=== PATIENT | female | born 1950 | race Caucasian/White ===

== ENCOUNTER 2016-10-22 22:06 | Observation (INO) | payer MEDICAID ==
[2016-10-22] MEDS ORDERED: Sodium Chloride 0.9% 1,000 ML IV STA (22:50)
[2016-10-22] MEDS ORDERED: Dexamethasone 4 mg/1 ml IV ONE (22:51)
--- NOTE | 2016-10-22 22:54 | ED PDOC ---
HPI: CCC, URI, Sore Throat Time Seen by Provider: 10/22/16 22:52 Chief Complaint (Nursing): ENT Problem Chief Complaint (Provider): sore throat History Per: Patient (66 y/o female here for evaluation of sore throat x 2 days associated with mild cough/nasal congestion. States she is unable to eat/drink since. Denies any vomiting/diarrhea. Notes chills. ) Past Medical History Reviewed: Historical Data, Nursing Documentation, Vital Signs Vital Signs: Last Vital Signs Temp 98.7 F 10/22/16 22:18 Pulse 82 10/22/16 22:18 Resp 18 10/22/16 22:18 BP 120/70 10/22/16 22:18 Pulse Ox 99 10/22/16 22:53 - Medical History PMH: Hyperthyroidism - Surgical History Surgical History: Appendectomy - Family History Family History: States: No Known Family Hx - Allergies Allergies/Adverse Reactions: Allergies Allergy/AdvReac Type Severity Reaction Status Date / Time No Known Allergies Allergy Verified 10/22/16 22:18 Review of Systems ROS Statement: Except As Marked, All Systems Reviewed And Found Negative ENT: Positive for: Throat Pain Physical Exam - Reviewed Nursing Documentation Reviewed: Yes Vital Signs Reviewed: Yes - Physical Exam Appears: Positive for: Well, Non-toxic, No Acute Distress Head Exam: Positive for: ATRAUMATIC, NORMAL INSPECTION, NORMOCEPHALIC Skin: Positive for: Normal Color, Warm, DRY Eye Exam: Positive for: EOMI, Normal appearance, PERRL ENT: Positive for: Pharynx Is (right tonsillar erythema noted). Negative for: Normal ENT Inspection Neck: Positive for: Normal, Painless ROM Cardiovascular/Chest: Positive for: Regular Rate, Rhythm Respiratory: Positive for: CNT, Normal Breath Sounds Gastrointestinal/Abdominal: Positive for: Normal Exam, Bowel Sounds, Soft Back: Positive for: Normal Inspection Extremity: Positive for: Normal ROM Neurologic/Psych: Positive for: Alert, Oriented - Laboratory Results Result Diagrams: 10/22/16 23:13 10/22/16 23:13 - ECG O2 Sat by Pulse Oximetry: 99 - Progress ED Course And Treament: NS 1 liter 500ml per hour Morphine 2 mg iv x 1 dose zofran 4 mg iv x 1 dose decadron 10 mg iv x 1 dose RAPID STREP NEG INFLUENZA A/B NEG CT NECK SOFT TISSUE WITH CONTRAST: PENDING Disposition - Clinical Impression Clinical Impression: Sore throat - Patient ED Disposition Is Patient to be Admitted: Transfer of Care - Disposition Disposition: Transfer of Care Disposition Time: 00:00 Condition: FAIR Patient Signed Over To: Melissa Andrade Handoff Comments: PENDING CT NECK RESULTS
[2016-10-22 23:23] LABS: BASO # 0.1 K/uL (0.0-0.2); BASO % 0.7 % (0.0-2.0); EOS # 0.1 K/uL (0.0-0.7); EOS % 0.7 % (0.0-4.0); HEMATOCRIT 40.7 % (34.0-47.0); LYMPH # 1.7 K/uL (1.0-4.3); LYMPH % 17.9 % (20.0-40.0); MEAN CELL VOLUME 95.1 fl (81.0-99.0); MEAN CORPUSCULAR HEMOGLOBIN 31.8 pg (27.0-31.0); MEAN CORPUSCULAR HGB CONC 33.4 g/dL (33.0-37.0); MEAN PLATELET VOLUME 8.3 fl (7.2-11.7); MONO # 0.9 K/uL (0.0-0.8); NEUT # 6.6 K/uL (1.8-7.0); NEUT % 70.7 % (50.0-75.0); NRBC % 0.1 % (0.0-0.0); RED CELL DISTRIBUTION WIDTH 13.8 % (11.5-14.5); WHITE BLOOD COUNT 9.4 K/uL (4.8-10.8)
[2016-10-22 23:33] LABS: ALB/GLOB RATIO 1.2 (1.0-2.1); ALKALINE PHOSPHATASE 53 U/L (38-126); ALT/SGPT 32 U/L (9-52); AST/SGOT 29 U/L (14-36); BILIRUBIN,TOTAL 0.5 mg/dl (0.2-1.3); BLOOD UREA NITROGEN 18 mg/dl (7-17); CALCIUM 9.1 mg/dL (8.4-10.2); CARBON DIOXIDE 23 mmol/L (22-30); CHLORIDE 109 mmol/L (98-107); GFR AFRICAN-AMERICAN > 60; GLUCOSE,RANDOM 103 mg/dL (65-105); POTASSIUM 3.9 MMOL/L (3.6-5.0); SODIUM 141 mmol/l (132-148)
[2016-10-23] MEDS ORDERED: Iohexol 300 50 ML ONE (00:38)
--- NOTE | 2016-10-23 01:54 | CT ---
EXAM: CT Neck With Intravenous Contrast CLINICAL HISTORY: 66 years old, female; Pain; Painful swallowing and throat pain; Additional info: R/O retropharyngeal abscess TECHNIQUE: Axial computed tomography images of the neck with intravenous contrast. This CT exam was performed using one or more of the following dose reduction techniques: automated exposure control, adjustment of the mA and/or kV according to patient size, and/or use of iterative reconstruction technique. Coronal and sagittal reformatted images were created and reviewed. CONTRAST: 80 mL of [id number] administered intravenously. EXAM DATE/TIME: 10/22/2016 11:49 PM COMPARISON: No relevant prior studies available. FINDINGS: There are multiple low attenuation lesions in the thyroid, more prominent in the right lobe. The largest hypoattenuating area measures approximately 10 x 4 mm. Followup ultrasound is recommended. There is edema and heterogeneity along the inferior aspect of the lingual tonsil supportive of infectious/inflammatory process. Just anterior to the vallecula is a small round 7 x 9 x 12 mm fluid collection with enhancing rim supportive of a small abscess. The abscess nearly abuts the superior aspect of the hyoid bone and is located approximately 7 mm anterior to the mid vallecula. The epiglottis is edematous measuring 6 mm in diameter however the airway remains widely patent. There is no prevertebral soft tissue swelling. Mild degenerative changes in the osseous structures. IMPRESSION: Heterogeneity and edema at the base of the lingual tonsil consistent with inflammatory/infectious process with small abscess formation as described above. The epiglottis also appears involved being slightly edematous however the airway remains patent.
--- NOTE | 2016-10-23 02:21 | ED PDOC ---
- Laboratory Results Result Diagrams: 10/22/16 23:13 10/22/16 23:13 - ECG O2 Sat by Pulse Oximetry: 99 - Progress ED Course And Treament: case endorsed to feature writer EXAM: CT Neck With Intravenous Contrast CLINICAL HISTORY: 66 years old, female; Pain; Painful swallowing and throat pain; Additional info : R/O retropharyngeal abscess TECHNIQUE: Axial computed tomography images of the neck with intravenous contrast. This CT exam was performed using one or more of the following dose reduction techniques: automated exposure control, adjustment of the mA and/or kV according to patient size, and/or use of iterative reconstruction technique. Coronal and sagittal reformatted images were created and reviewed. CONTRAST: 80 mL of [id number] administered intravenously. EXAM DATE/TIME: 10/22/2016 11:49 PM COMPARISON: No relevant prior studies available. FINDINGS: There are multiple low attenuation lesions in the thyroid, more prominent in the right lobe. The largest hypoattenuating area measures approximately 10 x 4 mm. Followup ultrasound is recommended. There is edema and heterogeneity along the inferior aspect of the lingual tonsil supportive of infectious/inflammatory process. Just anterior to the vallecula is a small round 7 x 9 x 12 mm fluid collection with enhancing rim supportive of a small abscess. The abscess nearly abuts the superior aspect of the hyoid bone and is located approximately 7 mm anterior to the mid vallecula. The epiglottis is edematous measuring 6 mm in diameter however the airway remains widely patent. There is no prevertebral soft tissue swelling. Mild degenerative changes in the osseous structures. IMPRESSION: Heterogeneity and edema at the base of the lingual tonsil consistent with inflammatory/infectious process with small abscess formation as described above. The epiglottis also appears involved being slightly edematous however the airway remains patent. Case discussed with Dr. Malloy, ENT on-call; recommends admission and will consult on patient. IV unasyn ordered. Dr. Quintanilla spoke with Dr. Joe, Medical service on-call, regarding admission. Disposition - Clinical Impression Clinical Impression: Pharyngeal abscess - POA Present On Arrival: None - Disposition Disposition: Admitted as In-Patient Disposition Time: 03:00 Condition: FAIR
[2016-10-23] MEDS ORDERED: Ampicillin/Sulbactam 3 GM in Sodium Chloride 0.9% 100 ML IVPB STA (03:05)
--- NOTE | 2016-10-23 03:10 | CP.PCM.HP ---
Past Patient History - Past Social History Smoking Status: Never Smoked - ENDOCRINE/METABOLIC Hx Hyperthyroidism: Yes - PSYCHIATRIC Hx Substance Use: No - SURGICAL HISTORY Hx Appendectomy: Yes Meds Allergies/Adverse Reactions: Allergies Allergy/AdvReac Type Severity Reaction Status Date / Time No Known Allergies Allergy Verified 10/22/16 22:18 Results - Vital Signs Recent Vital Signs: Last Vital Signs Temp 98.7 F 10/22/16 22:18 Pulse 82 10/22/16 22:18 Resp 18 10/22/16 22:18 BP 120/70 10/22/16 22:18 Pulse Ox 99 10/23/16 02:21 - Labs Result Diagrams: 10/22/16 23:13 10/22/16 23:13 Labs: Laboratory Results - last 24 hr 10/22/16 10/22/16 10/22/16 23:13 23:13 23:13 WBC 9.4 D RBC 4.28 Hgb 13.6 Hct 40.7 MCV 95.1 MCH 31.8 H MCHC 33.4 RDW 13.8 Plt Count 253 MPV 8.3 Neut % (Auto) 70.7 Lymph % (Auto) 17.9 L [place] % (Auto) 10.0 Eos % (Auto) 0.7 Baso % (Auto) 0.7 Neut # 6.6 Lymph # 1.7 [place] # 0.9 H Eos # 0.1 Baso # 0.1 Sodium 141 Potassium 3.9 Chloride 109 H Carbon Dioxide 23 Anion Gap 13 BUN 18 H Creatinine 0.5 L Est GFR ( Amer) > 60 Est GFR (Non-Af Amer) > 60 Random Glucose 103 Calcium 9.1 Total Bilirubin 0.5 AST 29 ALT 32 Alkaline Phosphatase 53 Total Protein 8.0 Albumin 4.4 Globulin 3.6 Albumin/Globulin Ratio 1.2 Influenza Typ A,B (EIA) Negative for flu a/b Grp A Beta Strep Ag 10/22/16 23:13 WBC RBC Hgb Hct MCV MCH MCHC RDW Plt Count MPV Neut % (Auto) Lymph % (Auto) [place] % (Auto) Eos % (Auto) Baso % (Auto) Neut # Lymph # [place] # Eos # Baso # Sodium Potassium Chloride Carbon Dioxide Anion Gap BUN Creatinine Est GFR ( Amer) Est GFR (Non-Af Amer) Random Glucose Calcium Total Bilirubin AST ALT Alkaline Phosphatase Total Protein Albumin Globulin Albumin/Globulin Ratio Influenza Typ A,B (EIA) Grp A Beta Strep Ag Negative
[2016-10-23] MEDS ORDERED: Ampicillin/Sulbactam 3 GM in Sodium Chloride 0.9% 100 ML IVPB SCH (10:00)
--- NOTE | 2016-10-23 13:16 | CON ---
DATE: 10/23/2016 REASON FOR CONSULTATION: Throat pain. HISTORY OF PRESENT ILLNESS: This is a 66-year-old female who presented to the ER yesterday with thro at pain moderate to severe in intensity, constant for a few days. It was in midline on both sides of the neck. It was not lateralizing to any side. PAST MEDICAL HISTORY: As noted on the chart by me. MEDICATIONS: As noted on the chart by me. PHYSICAL EXAMINATION: HEAD: Atraumatic, normocephalic. FACE: Good facial movements bilaterally. CONSTITUTIONAL: Well-developed, well-nourished. COMMUNICATION: Communicates very appropriately. EXTERNAL NOSE AND EARS: No masses, no lesions, no erythema, no edema. INTERNAL NOSE: Deviated septum, no masses, no lesions, no erythema, no edema. ORAL CAVITY, OROPHARYNX: No masses, no lesions, no erythema, no edema. LIPS, GUMS: No masses, no lesions, no erythema, no edema. NECK: Supple. THYROID: No thyromegaly, no goiter. LYMPH NODES: Mild lymphadenopathy of the neck on both sides along the IJ chain. THYROID: No thyromegaly, no goiter. CAT scan was reviewed by me, which revealed lingual tonsillitis. There is no drainable abscess but t he radiologist looking at is the ____ lingual tonsils being swollen ____ infection and is giving a li ttle hypodensity in the middle; however, there is no abscess to drain. ASSESSMENT: 1. Lingual tonsillitis. 2. Deviated septum. PLAN: The patient can be discharged home on IV antibiotics and steroids. Brigido Malloy MD cc: [id number] TT: 10/23/2016 13:15:38 Confirmation # [id number] Dictation # [id number]
--- NOTE | 2016-10-23 14:25 | CP.PCM.PCO ---
Assessment/Plan - Assessment/Plan Assessment (Free Text): Pt stable, tolerating diet. Offers no complaints except for mild pain on left sub-mandible. Pt seen by Dr. Malloy and cleared for d/c home on oral antibiotics , Augmentin 875 bid x 7 days. Rx given. Pt also given Magic mouth wash. Pt seen and cleared for d/c home by Dr. Joe. Pt to f/u with Dr. Malloy in the office in 1 week. Pt and at bedside aware. - Problems Patient Problems: Problem List (Active/Current) Problem Status Onset Code Pharyngeal abscess Acute J39.1
[2016-10-23 15:14] VITALS: RESP 18
[2016-10-23] MEDS ORDERED: Pneumococcal 23-Valent Vaccine IM ONE (15:14)
[2016-10-23 15:57] VITALS: BP 103/57; PULSE 75; TEMP 98.9; O2SAT 96
--- NOTE | 2016-10-24 00:11 | CP.PCM.HP ---
History of Present Illness - History of Present Illness History of Present Illness: A 66 yr old female is here with pmhx of hypothyroidism came with c\o sore throat ,low grade fever ,cough and cold symptoms for 3-4 days ,kept worsening unable to see PMD came to ER. not able to eat,dificulty in swallowing liquids. CT neck showed lingula tonsillar abscess Present on Admission - Present on Admission Any Indicators Present on Admission: No Review of Systems - Constitutional Constitutional: Headache, Malaise. absent: Chills, Fever, Weight Loss - EENT Nose/Mouth/Throat: Odynophagia, Sore Throat, Throat Swelling - Cardiovascular Cardiovascular: absent: Chest Pain, Dyspnea, Palpitations, Pedal Edema - Respiratory Respiratory: Cough. absent: Wheezing, Excessive Mucous Production, Change in Mucous Color - Gastrointestinal Gastrointestinal: absent: Abdominal Pain, Belching, Dyspepsia, Nausea, Vomiting - Genitourinary Genitourinary: absent: Hematuria, Urinary Frequency - Musculoskeletal Musculoskeletal: Arthralgias, Neck Pain. absent: Limited Range of Motion, Stiffness - Integumentary Integumentary: absent: Lesions, Sores - Neurological Neurological: absent: Dizziness, Focal Weakness - Psychiatric Psychiatric: absent: Anxiety, Behavioral Changes Past Patient History - Past Social History Smoking Status: Never Smoked - ENDOCRINE/METABOLIC Hx Endocrine Disorders: Yes - MUSCULOSKELETAL/RHEUMATOLOGICAL Hx Falls: No - PSYCHIATRIC Hx Substance Use: No - SURGICAL HISTORY Hx Appendectomy: Yes Meds Home Medications: Home Medication List Medication Instructions Recorded Confirmed Type Amoxicillin/Clavulanate [Augmentin 1 tab PO BID #14 tab 10/23/16 Rx 875 MG-125 MG] Mag&Al/Simet/Diphen/Lido [First 5 ml MM TID PRN #1 kit 10/23/16 Rx Magic Mouthwash] Allergies/Adverse Reactions: Allergies Allergy/AdvReac Type Severity Reaction Status Date / Time No Known Allergies Allergy Verified 10/22/16 22:18 Physical Exam - Constitutional Appears: Non-toxic, No Acute Distress - Head Exam Head Exam: ATRAUMATIC, NORMOCEPHALIC - Eye Exam Eye Exam: EOMI, Normal appearance, PERRL - ENT Exam ENT Exam: Mucous Membranes Moist Additional comments: left side neck swelling, tender, - Neck Exam Neck exam: Positive for: Lymphadenopathy, Tenderness - Respiratory Exam Respiratory Exam: Clear to Auscultation Bilateral, NORMAL BREATHING PATTERN. absent: Chest Wall Tenderness, Wheezes - Cardiovascular Exam Cardiovascular Exam: REGULAR RHYTHM, +S1, +S2. absent: Tachycardia, Systolic Murmur - GI/Abdominal Exam GI & Abdominal Exam: Normal Bowel Sounds, Soft. absent: Tenderness - Extremities Exam Extremities exam: Positive for: normal inspection, pedal pulses present. Negative for: pedal edema - Neurological Exam Neurological exam: Alert, Normal Gait, Oriented x3 - Psychiatric Exam Psychiatric exam: Normal Mood - Skin Skin Exam: Intact Results - Vital Signs Recent Vital Signs: Last Vital Signs Temp 98.9 F 10/23/16 15:56 Pulse 75 10/23/16 15:56 Resp 18 10/23/16 15:56 BP 103/57 L 10/23/16 15:56 Pulse Ox 96 10/23/16 15:56 - Labs Result Diagrams: 10/22/16 23:13 10/22/16 23:13 Labs: Laboratory Results - last 24 hr 10/23/16 10:59 POC Glucose (mg/dL) 223 H - Imaging and Cardiology CT scan - head Status: Report reviewed by me Assessment & Plan (1) Tonsil, abscess Status: Acute Comment: IVF. ON bax. notes she feels better.tolerating liquids. as vitals and labs stable,agrre with ENT to send her home and f\u as OP. po abx, hydration.if worse come back.d\w in detail. d\c home. Decision To Admit - Pt Status Changed To: Hospital Disposition Of: Inpatient - Admit Certification Admit to Inpatient:: After my assessment, the patient will require hospitalization for at least two midnights. This is because of the severity of symptoms shown, intensity of services needed, and/or the medical risk in this patient being treated as an outpatient. - . Bed Request Type: Med/Surg Admitting Physician: Casper Joe
[2016-10-24] MEDS ORDERED: Latanoprost 0.005% Opht SOUTION OU SCH (09:00)
[2016-10-24] MEDS ORDERED: Levothyroxine 100 MCG TAB PO SCH (09:00)
== END 2016-10-23 16:27 | disposition home or self-care (01) ==
LOC: H.ER 22:06 → H.ERHOLD 10-23 02:53 → INTOOBSV 10-23 02:53 → H.MEDSURG1 10-23 06:37
PROVIDERS: ADMIT Internal Medicine; ATTEND Internal Medicine
DX: J03.90 Acute tonsillitis, unspecified (principal); J34.2 Deviated nasal septum; Z23 Encounter for immunization

== ENCOUNTER 2017-04-20 07:32 | Emergency (ER) | payer MEDICAID ==
[2017-04-20 07:35] VITALS: BMI 21.9
[2017-04-20] MEDS ORDERED: Sodium Chloride 0.9% 1,000 ML IV STA (07:53)
--- NOTE | 2017-04-20 07:58 | ED PDOC ---
HPI: Abdomen Time Seen by Provider: 04/20/17 07:37 Chief Complaint (Nursing): Abdominal Pain Chief Complaint (Provider): Epigastric pain History Per: Patient History/Exam Limitations: no limitations Onset/Duration Of Symptoms: Days (x4) Current Symptoms Are (Timing): Still Present Additional Complaint(s): Joanne Bull is a 66 year old female with a past medical history of Rheumatoid Arthritis presenting to the ED for an evaluation of epigastric abdominal pain associated with nausea and vomiting occurring for 4 days prior to arrival. The patient denies fever, diarrhea, or blood in vomitus. PMD: TBD Past Medical History Reviewed: Historical Data, Nursing Documentation, Vital Signs Vital Signs: Last Vital Signs Temp 98.2 F 04/20/17 08:30 Pulse 55 L 04/20/17 08:30 Resp 16 04/20/17 08:30 BP 126/72 04/20/17 08:30 Pulse Ox 100 04/20/17 08:30 - Medical History PMH: Hyperthyroidism - Surgical History Surgical History: Appendectomy - Family History Family History: States: No Known Family Hx - Home Medications Home Medications: Ambulatory Orders Medication Instructions Recorded Alendronate Sodium [Binosto] 70 mg PO DAILY 10/23/16 Amoxicillin/Clavulanate [Augmentin 1 tab PO BID #14 tab 10/23/16 875 MG-125 MG] Cholecalciferol [Vitamin D 1000 IU] 2,000 unit PO DAILY 10/23/16 Folic Acid 1 mg PO DAILY 10/23/16 Latanoprost 0.005% Opht [Xalatan 1 drop TOP DAILY 10/23/16 Opht] Levothyroxine Sodium [Levoxyl] 100 mcg PO DAILY 10/23/16 Loratadine [Claritin] 10 mg PO DAILY 10/23/16 Mag&Al/Simet/Diphen/Lido [First 5 ml MM TID PRN #1 kit 10/23/16 Magic Mouthwash] Ranitidine HCl [Acid [employer]] 150 mg PO BID 10/23/16 Famotidine [Pepcid] 20 mg PO Q12 #20 tab 04/20/17 - Allergies Allergies/Adverse Reactions: Allergies Allergy/AdvReac Type Severity Reaction Status Date / Time No Known Allergies Allergy Verified 10/22/16 22:18 Review of Systems ROS Statement: Except As Marked, All Systems Reviewed And Found Negative Constitutional: Negative for: Fever Gastrointestinal: Positive for: Nausea, Vomiting, Abdominal Pain (epigastric abdominal pain). Negative for: Diarrhea, Hematemesis Physical Exam - Reviewed Nursing Documentation Reviewed: Yes Vital Signs Reviewed: Yes - Physical Exam Appears: Positive for: Non-toxic, No Acute Distress Head Exam: Positive for: ATRAUMATIC, NORMOCEPHALIC Skin: Positive for: Normal Color, Warm, Dry Eye Exam: Positive for: Normal appearance, EOMI Neck: Positive for: Normal, Painless ROM Cardiovascular/Chest: Positive for: Regular Rate, Rhythm, Chest Non Tender Respiratory: Positive for: Normal Breath Sounds. Negative for: Respiratory Distress Gastrointestinal/Abdominal: Positive for: Bowel Sounds, Soft, Tenderness (mild epigastric tenderness ) Extremity: Positive for: Normal ROM, Deformity (arthritic deformities to fingers and uppers and upper extremities bilaterally) Neurologic/Psych: Positive for: Alert, Oriented (x3). Negative for: Motor/ Sensory Deficits - Laboratory Results Result Diagrams: 04/20/17 08:48 04/20/17 08:48 - ECG O2 Sat by Pulse Oximetry: 99 (RA) Pulse Ox Interpretation: Normal - Progress Re-evaluation Time: 10:42 Condition: Improved Medical Decision Making Medical Decision Making: Time: 07:37 Impression: Epigastric pain associated with nausea and vomiting Plan: * CMP * CBC (with differential) * NS 0.9% 1,000 ml IV 100 mls/hr * Pepcid 20 mg IVP * Zofran 4 mg IVP * Reevaluation Scribe Attestation: Documented by Bibiana Larose, acting as a scribe for Marcio Cox MD. Provider Scribe Attestation: All medical record entries made by the Scribe were at my direction and personally dictated by me. I have reviewed the chart and agree that the record accurately reflects my personal performance of the history, physical exam, medical decision making, and the department course for this patient. I have also personally directed, reviewed, and agree with the discharge instructions and disposition. Disposition - Clinical Impression Clinical Impression: Gastritis - Patient ED Disposition Is Patient to be Admitted: No Counseled Patient/Family Regarding: Studies Performed, Diagnosis, Need For Followup, Rx Given - Disposition Referrals: [facility] [Outside] Disposition: Routine/Home Disposition Time: 10:42 Condition: FAIR Prescriptions: Famotidine [Pepcid] 20 mg PO Q12 #20 tab Instructions: Gastritis (ED) Forms: [facility] (Bulgarian)
[2017-04-20 08:29] VITALS: TEMP 98.2
[2017-04-20 09:20] LABS: BASO # 0.1 K/uL (0.0-0.2); BASO % 1.8 % (0.0-2.0); EOS # 0.1 K/uL (0.0-0.7); EOS % 1.6 % (0.0-4.0); HEMATOCRIT 40.1 % (34.0-47.0); LYMPH # 2.1 K/uL (1.0-4.3); LYMPH % 40.8 % (20.0-40.0); MEAN CELL VOLUME 96.1 fl (81.0-99.0); MEAN CORPUSCULAR HEMOGLOBIN 31.6 pg (27.0-31.0); MEAN CORPUSCULAR HGB CONC 32.9 g/dL (33.0-37.0); MONO # 0.4 K/uL (0.0-0.8); MONO % 7.4 % (0.0-10.0); NEUT # 2.5 K/uL (1.8-7.0); NEUT % 48.4 % (50.0-75.0); NRBC % 0.1 % (0.0-0.0); RED CELL DISTRIBUTION WIDTH 13.9 % (11.5-14.5); WHITE BLOOD COUNT 5.2 K/uL (4.8-10.8)
[2017-04-20 09:27] LABS: ALB/GLOB RATIO 1.3 (1.0-2.1); ALKALINE PHOSPHATASE 63 U/L (38-126); ALT/SGPT 131 U/L (9-52); AST/SGOT 38 U/L (14-36); BILIRUBIN,TOTAL 0.5 mg/dl (0.2-1.3); BLOOD UREA NITROGEN 22 mg/dl (7-17); CARBON DIOXIDE 23 mmol/L (22-30); CHLORIDE 111 mmol/L (98-107); GFR AFRICAN-AMERICAN > 60; GLUCOSE,RANDOM 90 mg/dL (65-105); POTASSIUM 3.9 MMOL/L (3.6-5.0); SODIUM 143 mmol/l (132-148); TOTAL PROTEIN 7.7 G/DL (6.3-8.2)
[2017-04-20 10:44] VITALS: O2SAT 99
[2017-04-20 11:15] VITALS: BP 121/72; PULSE 52; RESP 14
== END 2017-04-20 11:15 | disposition home or self-care (01) ==
LOC: H.ER 07:32
DX: K29.70 Gastritis, unspecified, without bleeding (principal); E05.90 Thyrotoxicosis, unspecified without thyrotoxic crisis or storm
CPT/HCPCS: 80053; 85025; 96374; 96375; 99283; J2405; J7040

== ENCOUNTER 2017-07-01 08:45 | Day surgery (SDC) | payer MEDICAID ==
[2017-06-24 08:29] VITALS: BMI 23.6
[2017-07-01] MEDS ORDERED: Lactated Ringer's 1,000 ML IV ONE (09:54)
[2017-07-01 10:51] VITALS: TEMP 97; O2SAT 100
[2017-07-01] MEDS ORDERED: Propofol 10 mg/ml Inj (20 ML) ONE (12:00)
[2017-07-01] MEDS ORDERED: Lidocaine 2% MPF (5 ml) Inj ONE (12:00)
[2017-07-01 12:35] VITALS: RESP 14
[2017-07-01 12:36] VITALS: BP 110/60; PULSE 52
== END 2017-07-01 13:01 | disposition home or self-care (01) ==
LOC: H.ENDO 08:45
PROVIDERS: ATTEND Internal Medicine Gastroenterology
DX: K30 Functional dyspepsia (principal); E03.9 Hypothyroidism, unspecified; K29.50 Unspecified chronic gastritis without bleeding; B96.81 Helicobacter pylori [H. pylori] as the cause of diseases classified elsewhere
CPT/HCPCS: 43239; 88305; J2704; J7120